=== PATIENT | female | born 1965 | race Caucasian/White ===

== ENCOUNTER 2019-10-04 10:34 | Day surgery (SDC) | payer OTHER ==
[~2019-10-04 10:34] MED LIST: CLINDAMYCIN-D5W 900 MG/50 ML*** 900 MG/50 ML BAG IV SCH; Lactated Ringers 1,000 ML IV ONE; Lactated Ringers 1,000 ML IV SCH; Levofloxacin 500MG/100ML D5W 500 MG/100 ML BAG IV ONE; Levofloxacin 500MG/100ML D5W 500 MG/100 ML BAG IV SCH; Sensorcaine 0.25% 10 ML ONE
[2019-10-04] MEDS ORDERED: DIPRIVAN 200 MG/20 ML IV ONE (11:57)
[2019-10-04] MEDS ORDERED: Versed 2 MG/2 ML Injection ONE (11:57)
[2019-10-04] MEDS ORDERED: Zemuron 100 MG/10 ML ONE (11:57)
[2019-10-04] MEDS ORDERED: SUBLIMAZE 250 MCG/5 ML ONE (11:58)
[2019-10-04] MEDS ORDERED: Ephedrine Sulfate 50 MG/ML ONE (13:37)
[2019-10-04] MEDS ORDERED: BRIDION 200MG/2ML IV ONE (14:01)
[2019-10-04] MEDS ORDERED: SUBLIMAZE 100 MCG/2 ML ONE (14:37)
[2019-10-04] MEDS ORDERED: Lactated Ringers 1,000 ML IV ONE (14:39)
[2019-10-04] MEDS ORDERED: Compazine 10 MG/2 ML IV ONE (15:50)
[2019-10-04 15:59] VITALS: O2SAT 92
[2019-10-04 16:55] VITALS: BP 129/79; PULSE 83
--- NOTE | 2019-10-20 09:26 | OP ---
PROCEDURE DATE/TIME: 10/04/2019 1314 PREOPERATIVE DIAGNOSIS: Chronic cholecystitis with cholelithiasis. POSTOPERATIVE DIAGNOSIS: Chronic cholecystitis with cholelithiasis. PROCEDURE: Laparoscopic cholecystectomy. PROCEDURE PERFORMED BY: Claudette Birch M.D. COMPLICATIONS: None. ESTIMATED BLOOD LOSS: Minimal less than 10 cc. ANESTHESIA: General. SPECIMEN: Gallbladder. HISTORY: This is a patient who presents with chronic cholecystitis with cholelithiasis. She is here for laparoscopic possible open cholecystectomy. H&P and consent review with her and confirmed. DESCRIPTION OF PROCEDURE: She was then brought to the operative suite. Anesthesia was induced. Prepped and draped in the usual sterile fashion. A complete time out was performed. Orogastric tube inserted and stomach desufflated. Complete time out. Left upper quadrant incision made. Veress needle used to access the abdominal cavity. Good initial insufflating pressure. Abdomen easily insufflated. A 5 mm optical trocar was then placed under direct visualization. No injuries identified. An 11 port placed in the periumbilical region and two - 5 ports on the right upper quadrant all under direct visualization. Gallbladder identified, grasped and retracted. Adhesions taken down. The cystic duct and cystic artery were carefully identified through meticulous dissection. We identified the critical view. There were only two structures entering the gallbladder the cystic duct and cystic artery. They were clipped and ligated. Gallbladder is taken off the liver bed with Bovie cautery, placed into laparoscopic bag and extracted from the abdomen. We did desufflate the gallbladder with suction while it was in the bag through the umbilical site to allow full extraction through the small incision. No spillage. This was sent to pathology. We did identify bilirubin and cholesterol stone with some mild cholesterolosis upon opening the gallbladder on the back table. It was sent to pathology for final assessment. We closed the 11 port with 0 Vicryl laparoscopic suture. The surgical sites were all carefully investigated. Clips in good position. Everything hemostatic. No issues. We then desufflated the abdomen, removed the remaining of the 5 ports. Irrigated thoroughly. Closed with buried 4-0 Monocryl, Steri-Strips, sterile dressing. The patient tolerated the procedure very well and no immediate complications. She is going to follow up with me as an outpatient. I discussed her results with her family. She understands all of her postoperative instructions which we discussed preoperatively and then I also discussed these with her family postoperatively as well.
== END 2019-10-04 16:40 | disposition home or self-care (01) ==
LOC: SDC 10:34
PROVIDERS: ATTEND Surgery
DX: K80.10 Calculus of gallbladder with chronic cholecystitis without obstruction (principal)
CPT/HCPCS: 88304; J1956; J2250; J2704; J3010

== ENCOUNTER 2025-02-02 06:29 | Day surgery (SDC) | payer OTHER ==
[2025-02-02] MEDS ORDERED: Lactated Ringers 1,000 ML IV SCH (07:00)
[2025-02-02] MEDS ORDERED: Versed 2 MG/2 ML Injection ONE (07:51)
[2025-02-02] MEDS ORDERED: propofoL IV ONE ×2 (07:51→08:15)
[2025-02-02 09:07] VITALS: PULSE 78; RESP 16; TEMP 97.3; O2SAT 98
[2025-02-02 09:14] VITALS: BP 131/89
--- NOTE | 2025-02-04 10:39 | OP ---
SURGERY DATE/TIME: 02/02/2025 2912-4337 PREOPERATIVE DIAGNOSES: 1) Gastroesophageal reflux disease. 2) Screening colonoscopy. POSTOPERATIVE DIAGNOSES: 1) Duodenitis. 2) Gastric polyp. 3) Normal colon. PROCEDURES: Esophagogastroduodenoscopy and colonoscopy. SURGEON: Moncho Espinoza MD. ANESTHESIA: MAC, by Dom Ortiz CRNA. ESTIMATED BLOOD LOSS: Minimal. SPECIMENS: There are 2 cold forceps biopsies taken from the duodenum and 1 cold forceps polypectomy from a gastric polyp. DESCRIPTION OF PROCEDURE AND FINDINGS: After informed written consent was obtained, the patient was taken to the endoscopy suite. She was placed in the left lateral decubitus position and a bite block was inserted. Anesthesia was titrated to the desired level of consciousness. Then, the endoscope was inserted into the posterior oropharynx. Under direct visualization, the esophagus was easily traversed. Upon entry into the stomach, there was normal rugae of the gastric mucosa with no obvious lesions or defects other than a couple of small gastric polyps which appeared benign. The pylorus was traversed, and the duodenum had mild duodenitis-type changes in the proximal duodenum. Two cold forceps biopsies were taken from this area and sent for pathology testing. Minimal blood loss and no complications. Upon entry back into the stomach, again there were 2 small gastric polyps, the larger sales [employer] was sampled with cold forceps and sent for pathology testing. The GE junction and the esophagus had a normal mucosal appearance. The scope was removed, and the scopes were switched. Digital rectal exam showed normal sphincter tone and no internal lesions. The scope was inserted into the rectum, and sequentially the entire colonic mucosa was traversed. The level of the cecum was reached and verified under direct visualization of the ileocecal valve. Upon withdrawal, careful mucosal inspection revealed no gross abnormalities. Prior to withdrawal, retroflexion showed no internal lesions. The scope was removed, and patient was transferred to the recovery room in good condition. She has been advised to follow up for pathology results in 1 week.
== END 2025-02-02 09:26 | disposition home or self-care (01) ==
LOC: SDC 06:29
PROVIDERS: ATTEND Family Medicine
DX: Z12.11 Encounter for screening for malignant neoplasm of colon (principal); K21.9 Gastro-esophageal reflux disease without esophagitis; K29.80 Duodenitis without bleeding; K31.7 Polyp of stomach and duodenum
CPT/HCPCS: J2250; J2704

== ENCOUNTER 2025-08-03 11:34 | Emergency (ER) | payer OTHER ==
[2025-08-03 11:53] VITALS: TEMP 97.5
--- NOTE | 2025-08-03 11:56 | ERPHSYRPT ---
- History of Present Illness Time Seen by Provider: 08/03/25 11:39 Historian: patient Exam Limitations: no limitations Patient Subjective Stated Complaint: patient states shes bene having chest pain for past 2 weeks Triage Nursing Assessment: patient presented to ED with chest pain for past two weeks the NPO at [facility] office sent her in here. she is able to ambualte by self, gait is steady, pupils perrla, skin warm dry and itnact no edema noted, patient states she is jsut achy all over some numbness in her arms occasionally but she also has fibromyalgia. she has also had headache for past couple of days as well. Physician History: 60-year-old female presents to the emergency room with chest pain patient reports she has had the pain intermittently for the past 2 weeks she use saw her nurse practitioner who advised her to get fasting labs she went there today she was talking to one of her family members who works at [employer] in the cardiac lab and she advised her to go to the ER for evaluation for chest pain currently she is chest pain-free denies any shortness of breath resting comfortably awaiting further eval in the ER Timing/Duration: week(s) (2) Activities at Onset: none Chest Pain Radiation: no radiation Severity of Pain-Max: mild Severity of Pain-Current: none Modifying Factors: Worsens With: coughing, morphine, movement, aspirin, sitting up Associated Symptoms: No nausea, No vomiting, No palpitations, No shortness of breath, No cough Aspirin Treatment Today: no aspirin today Allergies/Adverse Reactions: Penicillins Allergy (Mild, Verified 02/02/25 06:47) Rash Home Medications: Omeprazole 20 mg PO BID 09/20/19 [History] Cholecalciferol (Vitamin D3) [Vitamin D3] 1,250 mcg PO UD 12/30/24 [History] Tizanidine HCl 2 mg PO DAILY 08/03/25 [History] Hx Tetanus, Diphtheria Vaccination/Date Given: Yes Hx Influenza Vaccination/Date Given: No Hx Pneumococcal Vaccination/Date Given: No Immunizations Up to Date: Yes Travel Risk - International Travel Have you traveled outside of the country in past 3 weeks: No - Emerging Infectious Disease Are you exhibiting symptoms associated with any current EIDs: No - Review of Systems Constitutional: No Fever, No Chills Eyes: No Symptoms Ears, Nose, & Throat: No Symptoms Respiratory: No Cough, No Dyspnea Cardiac: Chest Pain, No Edema, No Syncope Abdominal/Gastrointestinal: No Abdominal Pain, No Nausea, No Vomiting, No Diarrhea Genitourinary Symptoms: No Dysuria Musculoskeletal: No Back Pain, No Neck Pain Skin: No Rash Neurological: No Dizziness, No Focal Weakness, No Sensory Changes Psychological: No Symptoms Endocrine: No Symptoms All Other Systems: Reviewed and Negative - Past Medical History Pertinent Past Medical History: Yes Neurological History: Migraines Cardiac History: High Cholesterol Respiratory History: No Pertinent History Endocrine Medical History: No Pertinent History Musculoskeletal History: Fibromyalgia GI Medical History: GERD, Gallbladder Disease History: No Pertinent History Psycho-Social History: Anxiety, Depression Female Reproductive Disorders: No Pertinent History Other Medical History: DX'D WITH FIBROMYALGIA 5-6 YEARS AGO. NOT ON ANY MEDICATIONS. HX OF CHOLECYSTECTOMY 09/2019 - Past Surgical History Past Surgical History: Yes Gastrointestinal: Cholecystectomy Female Surgical History: Other Other Surgical History: Endometrial ablation, hernia repair mesh, gallbladder removal - Social History Smoking Status: Current some day smoker How long have you smoked: 30 yrs Exposure to second hand smoke: No Drug Use: none - Social Determinants of Health Will the patient participate in the screening: Declined to provide - Nursing Vital Signs Nursing Vital Signs: Initial Vital Signs Pulse Rate 85 08/03/25 11:37 Respiratory Rate 12 08/03/25 11:37 Blood Pressure 164/106 08/03/25 11:37 O2 Sat by Pulse Oximetry 95 08/03/25 11:37 Pain Scale Pain Intensity 6 - Physical Exam General Appearance: no apparent distress, alert Eye Exam: PERRL/EOMI, eyes nml inspection Ears, Nose, Throat Exam: normal ENT inspection, moist mucous membranes Neck Exam: normal inspection, non-tender, supple, full range of motion Respiratory Exam: normal breath sounds, lungs clear, No respiratory distress Cardiovascular Exam: regular rate/rhythm, normal heart sounds Gastrointestinal/Abdomen Exam: soft, No tenderness, No mass Back Exam: normal inspection, No CVA tenderness, No vertebral tenderness Extremity Exam: normal inspection, normal range of motion Neurologic Exam: alert, oriented x 3, cooperative, normal mood/affect, sensation nml, No motor deficits Skin Exam: normal color, warm, dry SpO2 Interpretation: normal SpO2: 98 - Course Nursing assessment & vital signs reviewed: Yes EKG Interpreted by Me: RATE (rate 89), Sinus Rhythm, Non-specific ST Changes, Other (no STEMI) - Radiology Exams Chest X-ray Interpretation: Reviewed by me Ordered Tests: Active Orders 24 hr Category Date Time Status Play Back Operator STAT Care 08/03/25 11:53 Completed EKG-ER Only STAT Care 08/03/25 11:52 Completed CHEST 1 VIEW (PORTABLE) Stat Exams 08/03/25 11:53 Completed CBC W DIFF Stat Lab 08/03/25 11:45 Completed CK-Creatinine Phosphokinase Stat Lab 08/03/25 11:45 Completed CMP Stat Lab 08/03/25 11:45 Completed D-DIMER QUANTITATIVE Stat Lab 08/03/25 11:45 Completed Manual Differential NC Stat Lab 08/03/25 11:45 Completed NT PRO BNPII Stat Lab 08/03/25 11:45 Completed TROPONIN Stat Lab 08/03/25 11:45 Completed Lab/Rad Data: Laboratory Result Diagrams 08/03/25 11:45 08/03/25 11:45 Laboratory Results 08/03/25 08/03/25 08/03/25 Range/Units 11:45 11:45 11:45 WBC (3.98-10.04) x10^3/uL RBC (3.93-5.22) x10^6/uL Hgb (11.2-15.7) g/dL Hct (34.1-44.9) % MCV (79.4-94.8) fL MCH (25.6-32.2) pg MCHC (32.2-35.5) g/dL RDW (11.7-14.4) % Plt Count (182-369) x10^3/uL MPV (9.4-12.3) fL Segmented Neutrophils (34.0-71.1) % Lymphocytes (Manual) (19.3-51.7) % Monocytes (Manual) (4.7-12.5) % Eosinophils (Manual) (0.7-5.8) % Atypical Lymphocytes % Platelet Estimate (NORMAL) RBC Morphology D-Dimer 0.42 (0.0-0.50) mg/L Sodium 137 (135-145) mmol/L Potassium 4.3 (3.5-5.1) mmol/L Chloride 101 (98-107) mmol/L Carbon Dioxide 28 (22-30) mmol/L Anion Gap 13.4 (5-15) MEQ/L BUN 11 (7-17) mg/dL Creatinine 0.85 (0.52-1.04) mg/dL Estimated GFR 78.9 ML/MIN Glucose 113 H (74-106) mg/dL Calcium 9.2 (8.4-10.2) mg/dL Total Bilirubin 1.20 (0.2-1.3) mg/dL AST 37 H (14-36) U/L ALT 42 H (0-35) U/L Alkaline Phosphatase 97 (38-126) U/L Creatine Kinase 63 (30-135) U/L Troponin I < 0.012 (0.000-0.033) ng/mL NT-Pro-B Natriuret Pep < 20.0 (<300) pg/mL Serum Total Protein 7.6 (6.3-8.2) g/dL Albumin 4.4 (3.5-5.0) g/dL 08/03/25 Range/Units 11:45 WBC 6.2 (3.98-10.04) x10^3/uL RBC 4.92 (3.93-5.22) x10^6/uL Hgb 15.6 (11.2-15.7) g/dL Hct 45.3 H (34.1-44.9) % MCV 92.1 (79.4-94.8) fL MCH 31.7 (25.6-32.2) pg MCHC 34.4 (32.2-35.5) g/dL RDW 11.9 (11.7-14.4) % Plt Count 119 L (182-369) x10^3/uL MPV 12.0 (9.4-12.3) fL Segmented Neutrophils 60 (34.0-71.1) % Lymphocytes (Manual) 29 (19.3-51.7) % Monocytes (Manual) 7 (4.7-12.5) % Eosinophils (Manual) 1 (0.7-5.8) % Atypical Lymphocytes 3 % Platelet Estimate NORMAL (NORMAL) RBC Morphology NORMAL D-Dimer (0.0-0.50) mg/L Sodium (135-145) mmol/L Potassium (3.5-5.1) mmol/L Chloride (98-107) mmol/L Carbon Dioxide (22-30) mmol/L Anion Gap (5-15) MEQ/L BUN (7-17) mg/dL Creatinine (0.52-1.04) mg/dL Estimated GFR ML/MIN Glucose (74-106) mg/dL Calcium (8.4-10.2) mg/dL Total Bilirubin (0.2-1.3) mg/dL AST (14-36) U/L ALT (0-35) U/L Alkaline Phosphatase (38-126) U/L Creatine Kinase (30-135) U/L Troponin I (0.000-0.033) ng/mL NT-Pro-B Natriuret Pep (<300) pg/mL Serum Total Protein (6.3-8.2) g/dL Albumin (3.5-5.0) g/dL Portable chest demonstrates bibasilar discoid atelectasis/scarring. Remaining heart and upper lungs unremarkable. Bony thorax intact. No acute findings. - Progress Progress Note: 08/03/25 13:01 Portable chest demonstrates bibasilar discoid atelectasis/scarring. Remaining heart and upper lungs unremarkable. Bony thorax intact. No acute findings. Patient is chest pain-free recommend patient follow-up with cardiology for outpatient stress test patient's troponin is normal D-dimer is within normal limits patient's EKG is normal sinus rhythm no evidence of ST elevations no evidence myocardial infarction noted recommend close return precautions patient be discharged at this time - Departure Departure Disposition: Home Clinical Impression: Chest pain Qualifiers: Chest pain type: unspecified Qualified Code(s): R07.9 - Chest pain, unspecified Condition: Stable Critical Care Time: No Referrals: SANGEETA MARADIAGA DO [Primary Care Provider, [facility]] - Follow up/PCP as directed THU EDWARDS [CONSULTING PHYSICIAN, CARDIOLOGY] - Follow up/PCP as directed Instructions: Angina (DC), Chest Pain (DC) Outpatient Orders: Stress Test: Anabel Facility: [facility], Location: RESPIRATORY THERAPY
[2025-08-03 12:08] LABS: Hematocrit 45.3 % (34.1-44.9); Hemoglobin 15.6 g/dL (11.2-15.7); Mean Corpuscular Hemoglobin 31.7 pg (25.6-32.2); Mean Corpuscular Hgb Concent. 34.4 g/dL (32.2-35.5); Platelet Count 119 x10^3/uL (182-369); Red Blood Count 4.92 x10^6/uL (3.93-5.22); White Blood Count 6.2 x10^3/uL (3.98-10.04)
--- NOTE | 2025-08-03 12:13 | XRAY ---
Indication: Chest pain. Comparison: None Portable chest demonstrates bibasilar discoid atelectasis/scarring. Remaining heart and upper lungs unremarkable. Bony thorax intact. No acute findings.
[2025-08-03 12:35] LABS: CK-Creatinine Phosphokinase 63 U/L (30-135); Calcium 9.2 mg/dL (8.4-10.2); Carbon Dioxide 28 mmol/L (22-30); Creatinine 1 0.85 mg/dL (0.52-1.04); EST GLOMERULAR FILTRATION RATE 78.9 ML/MIN; Glucose 113 mg/dL (74-106); Potassium 4.3 mmol/L (3.5-5.1); SGOT/AST 37 U/L (14-36); SGPT/ALT 42 U/L (0-35); TROPONIN < 0.012 ng/mL (0.000-0.033); Total Protein 7.6 g/dL (6.3-8.2)
[2025-08-03 12:40] VITALS: O2SAT 98
[2025-08-03 13:26] VITALS: BP 116/87; PULSE 90; RESP 18
[2025-08-03 13:40] LABS: Total Cells Counted 100
== END 2025-08-03 13:34 | disposition home or self-care (01) ==
LOC: ED 11:34
DX: R07.9 Chest pain, unspecified (principal); R42 Dizziness and giddiness; R53.83 Other fatigue; R07.1 Chest pain on breathing; Z79.899 Other long term (current) drug therapy; Z72.0 Tobacco use